=== PATIENT | female | born 1960 | race Caucasian/White ===

== ENCOUNTER 2016-12-18 17:53 | Emergency (ER) | payer MEDICAID, OTHER ==
[~2016-12-18] VITALS: Ht 170.2 cm; Wt 73.5 kg
[~2016-12-18 17:53] MED LIST: GABA400C PO
[2016-12-18 18:38] VITALS: BP 151/115
--- NOTE | 2016-12-18 19:30 | NUR ---
PT BROUGHT TO ER BED 8.
--- NOTE | 2016-12-18 19:40 | NUR ---
PATIENT PRESENTS TO ED WITH C/O UTI S/SX; FREQUENCY, BURNING, RIGHT FLANK PAIN X2 DAYS. HX RECURRENT UTI/KIDNEY INFECTIONS. SKIN IS PINK/WARM/DRY; AAOX4 WITH EVEN AND STEADY GAIT; PATIENT STATES PAIN OF 8/10 AT THIS TIME; VSS; PATIENT POSITIONED FOR COMFORT; HOB ELEVATED; BEDRAILS UP X2; BED DOWN. ER MD MADE AWARE OF PT STATUS.
--- NOTE | 2016-12-18 20:33 | NUR ---
DR. LOPEZ AT BEDSIDE EVALUATING PATIENT.
[2016-12-18 21:04] VITALS: BP 132/75
--- NOTE | 2016-12-18 21:04 | NUR ---
Patient discharged with v/s stable. Written and verbal after care instructions given and explained. Patient alert, oriented and verbalized understanding of instructions. Ambulatory with steady gait. All questions addressed prior to discharge. ID band removed. Patient advised to follow up with PMD. Rx of NORCO 5MG-325MG TAB 1 TO 2 TAB EVERY 4 HOURS, CIPRO 500MG TAB 1 TAB ORALLY 2 TIMES A DAY DO NOT TAKE WITH ANTACIDS given. Patient educated on indication of medication including possible reaction and side effects. Opportunity to ask questions provided and answered.
== END 2016-12-18 21:04 | disposition home or self-care (01) ==
LOC: MED 17:53
DX: N39.0 Urinary tract infection, site not specified (principal); F17.210 Nicotine dependence, cigarettes, uncomplicated; Z88.1 Allergy status to other antibiotic agents
CPT/HCPCS: 81002; 99283